=== PATIENT | male | born 1990 | race American Indian/Alaskan Native ===

== ENCOUNTER 2016-06-16 15:34 | Emergency (ER) | payer SELFPAY ==
[2016-06-16] MEDS ORDERED: TYLENOL PO ONE (16:55)
[2016-06-16] MEDS ORDERED: TYLENOL ONE (16:56)
--- NOTE | 2016-06-16 17:04 | Emergency Department Report ---
Chief Complaint: Sore Throat Stated Complaint: FEVER/THROAT/CANT KEEP FOOD DOWN Time Seen by Provider: 06/16/16 16:56 - HPI History of Present Illness: Patient here complaining of sore throat and fever since Monday. He is also complaining nasal congestion and coughing up mucus. Denies any shortness of breath or chest pain. He complaining of vomiting and diarrhea since yesterday. He reports that he feels hot and cold. Sore throat is 10 out of 10 and generalized is 8 out of 10. Denies any chest pain. Patient said he took TheraFlu without any relief. Denies any abdominal pain. - ROS Review of Systems: All systems are negative unless stated in HPI above. - Exam Vital Signs: Vital Signs 06/16/16 16:11 Temperature 100.2 F H Pulse Rate 118 H Respiratory 20 Rate Blood Pressure 120/67 O2 Sat by Pulse 98 Oximetry Physical Exam: General: This Is a morbidly obese male that is in no acute distress. Lungs: Dry cough, normal work of breathing. Clear to auscultate bilaterally. CV: Tachycardic at 118 suspect from fever. S1, S2 MSE screening note: Focused history and physical exam performed. Due to findings the following was ordered: See MDM ED Medical Decision Making - Medical Decision Making Medical decision making: Patient seen by provider in triage area. Appropriate protocol activated and patient to main ED to be seen by physician. ED Disposition for MSE Condition: Stable
[2016-06-16 17:51] LABS: Hematocrit 36.9 % (35.5-45.6); Hemoglobin 11.9 gm/dl (11.8-15.2); Mean Corpuscular HGB Conc 32 % (32-34); Mean Corpuscular Volume 77 fl (84-94); Platelet Count 403 K/mm3 (140-440); Red Blood Count 4.79 M/mm3 (3.65-5.03); Red Cell Distribution Width 15.6 % (13.2-15.2)
[2016-06-16 18:12] LABS: Mean Corpuscular Hemoglobin 25 pg (28-32)
[2016-06-16 18:15] LABS: Anion Gap 23 mmol/L; Blood Urea Nitrogen 12 mg/dL (9-20); Calcium 8.9 mg/dL (8.4-10.2); Carbon Dioxide 20 mmol/L (22-30); Chloride 96.8 mmol/L (98-107); Glucose 107 mg/dL (75-100); Potassium 3.7 mmol/L (3.6-5.0); Sodium 136 mmol/L (137-145)
[2016-06-16 19:22] LABS: Basophils % (Manual) 0 % (0.0-1.8); Blastocytes % (Manual) 0 %; Eosinophils % (Manual) 0 % (0.0-4.3)
[2016-06-16 19:30] LABS: Anisocytosis 1+; Diff Status Complete; Large Platelets 1+; Platelet Estimate Consistent w Auto
[2016-06-16 20:52] VITALS: BP 130/82
--- NOTE | 2016-06-17 13:00 | ED Elopement Review ---
ED Pt Elopement review - Results review Lab results: Laboratory Tests 06/16/16 06/16/16 17:41 17:41 WBC 40.0 H RBC 4.79 Hgb 11.9 Hct 36.9 MCV 77 L MCH 25 L MCHC 32 RDW 15.6 H Plt Count 403 Add Manual Diff Complete Total Counted 200 Seg Neutrophils % Dish Stacker Seg Neuts % (Manual) 53.0 Band Neutrophils % 39.0 Lymphocytes % (Manual) 4.0 L Reactive Lymphs % (Man) 0 Monocytes % (Manual) 4.0 Eosinophils % (Manual) 0 Basophils % (Manual) 0 Metamyelocytes % 0 Myelocytes % 0 Promyelocytes % 0 Blast Cells % 0 Nucleated RBC % Not Reportable Seg Neutrophils # Man 21.2 H Band Neutrophils # 15.6 Lymphocytes # (Manual) 1.6 Abs React Lymphs (Man) 0.0 Monocytes # (Manual) 1.6 H Eosinophils # (Manual) 0.0 Basophils # (Manual) 0.0 Metamyelocytes # 0.0 Myelocytes # 0.0 Promyelocytes # 0.0 Blast Cells # 0.0 WBC Morphology Not Reportable Hypersegmented Neuts Not Reportable Hyposegmented Neuts Not Reportable Hypogranular Neuts Not Reportable Smudge Cells Not Reportable Toxic Granulation Not Reportable Toxic Vacuolation Not Reportable Dohle Bodies Not Reportable Pelger-Huet Anomaly Not Reportable Mellissa Rods Not Reportable Platelet Estimate Consistent w auto Clumped Platelets Not Reportable Plt Clumps, EDTA Not Reportable Large Platelets 1+ Giant Platelets Not Reportable Platelet Satelliting Not Reportable Plt Morphology Comment Not Reportable RBC Morphology Not Reportable Dimorphic RBCs Not Reportable Polychromasia Not Reportable Hypochromasia Not Reportable Poikilocytosis Not Reportable Anisocytosis 1+ Microcytosis Not Reportable Macrocytosis Not Reportable Spherocytes Not Reportable Pappenheimer Bodies Not Reportable Sickle Cells Not Reportable Target Cells Not Reportable Tear Drop Cells Not Reportable Ovalocytes Not Reportable Helmet Cells Not Reportable Parnell-Guyton Bodies Not Reportable Ragland Rings Not Reportable Palomo Cells Not Reportable Bite Cells Not Reportable Crenated Cell Not Reportable Elliptocytes Not Reportable Acanthocytes (Spur) Not Reportable Rouleaux Not Reportable Hemoglobin C Crystals Not Reportable Schistocytes Not Reportable Malaria parasites Not Reportable Rocco Bodies Not Reportable Hem Pathologist Commnt Sent to pathology Sodium 136 L Potassium 3.7 Chloride 96.8 L Carbon Dioxide 20 L Anion Gap 23 BUN 12 Creatinine 0.6 L Estimated GFR > 60 BUN/Creatinine Ratio 20.00 Glucose 107 H Calcium 8.9 - Call Back decision Pt Call Back Decision: Call pt to return to ED [facility] (patient's WBC was 40,000)
--- NOTE | 2016-06-17 15:13 | XRay Report ---
ROUTINE CHEST, TWO VIEWS: HISTORY: Cough, fever. The trachea, heart, mediastinal contour, lung montoya and bony thorax are unremarkable. IMPRESSION: Unremarkable chest x-ray.
== END 2016-06-16 22:09 | disposition left against medical advice (07) ==
LOC: ED 15:34
DX: J02.9 Acute pharyngitis, unspecified (principal); R09.81 Nasal congestion; Z53.21 Procedure and treatment not carried out due to patient leaving prior to being seen by health care provider
CPT/HCPCS: 36415; 71020; 80048; 85007; 85025; 87116; 87400; 87430

== ENCOUNTER 2016-08-08 08:22 | Emergency (ER) | payer SELFPAY ==
--- NOTE | 2016-08-08 10:19 | Emergency Department Report ---
HPI - HPI HPI: 25-year-old male presents today stating he received a letter from [facility] stating his white blood cell count was elevated. Patient was here on June 14 for sore throat and fever and had blood work done. Denies any medical complaints at this time. Denies fever, chills, nausea , vomiting, chest pain, shortness of breath, abdominal pain. <ROLANDO ALLEN - Last Filed: 08/08/16 10:32> <RAMÓN MCNEIL - Last Filed: 08/08/16 15:38> - General Chief Complaint: Recheck/Abnormal Lab/Rx Time Seen by Provider: 08/08/16 10:06 ED Past Medical Hx - Past Medical History Previous Medical History?: No Additional medical history: "weak ankles", morbidly obese - Surgical History Past Surgical History?: No - Social History Smoking Status: Current Every Day Smoker Substance Use Type: Alcohol <ROLANDO ALLEN - Last Filed: 08/08/16 10:32> <RAMÓN MCNEIL - Last Filed: 08/08/16 15:38> - Medications Home Medications: Home Medications Medication Instructions Recorded Confirmed Last Taken Type No Known Home Medications [No 06/16/16 06/16/16 Unknown History Reported Home Medications] ED Review of Systems ROS: Stated complaint: ABNORMAL LABS Other details as noted in HPI Constitutional: denies: chills, fever, malaise Eyes: denies: eye pain ENT: denies: ear pain, throat pain, congestion Respiratory: denies: cough, shortness of breath, wheezing Cardiovascular: denies: chest pain, palpitations Endocrine: no symptoms reported Gastrointestinal: denies: abdominal pain, nausea, vomiting Skin: denies: rash Neurological: denies: headache, weakness <ROLANDO ALLEN - Last Filed: 08/08/16 10:32> ROS: Stated complaint: ABNORMAL LABS Other details as noted in HPI <RAMÓN MCNEIL - Last Filed: 08/08/16 15:38> Physical Exam - Physical Exam Vital Signs: Vital Signs 08/08/16 08:27 Temperature 98.2 F Pulse Rate 100 H Respiratory 16 Rate Blood Pressure 147/89 O2 Sat by Pulse 100 Oximetry Physical Exam: GENERAL: The patient is well-developed and well-nourished. Patient is in NAD. HEAD: Normocephalic. Atraumatic. EYES: PERRL. EARS: External auditory canals and tympanic membranes clear; hearing grossly intact. NOSE: Normal nasal mucosa with no nasal discharge. THROAT: No erythema, swelling or exudates. NECK: Supple, nontender, without lymphadenopathy. CHEST/LUNGS: Clear to auscultation throughout. HEART/CARDIOVASCULAR: Regular rate and rhythm. No murmurs, rubs or gallops. ABDOMEN: Abdomen is soft, nontender. Bowel sounds normoactive. No guarding or rebound tenderness. EXTREMITIES: Peripheral pulses intact. Capillary refill less than 2 seconds. NEURO: Alert and oriented x 3. Normal gait. <ROLANDO ALLEN - Last Filed: 08/08/16 10:32> - Physical Exam Vital Signs: Vital Signs 08/08/16 08/08/16 08:27 10:28 Temperature 98.2 F Pulse Rate 100 H 92 H Respiratory 16 20 Rate Blood Pressure 147/89 Blood Pressure 146/86 [Left] O2 Sat by Pulse 100 100 Oximetry <RAMÓN MCNEIL - Last Filed: 08/08/16 15:38> ED Course Vital Signs 08/08/16 08:27 Temperature 98.2 F Pulse Rate 100 H Respiratory 16 Rate Blood Pressure 147/89 O2 Sat by Pulse 100 Oximetry <ROLANDO ALLEN - Last Filed: 08/08/16 10:32> Vital Signs 08/08/16 08/08/16 08:27 10:28 Temperature 98.2 F Pulse Rate 100 H 92 H Respiratory 16 20 Rate Blood Pressure 147/89 Blood Pressure 146/86 [Left] O2 Sat by Pulse 100 100 Oximetry <RAMÓN MCNEIL - Last Filed: 08/08/16 15:38> ED Medical Decision Making - Lab Data Vital Signs 08/08/16 08/08/16 08:27 10:28 Temperature 98.2 F Pulse Rate 100 H 92 H Respiratory 16 20 Rate Blood Pressure 147/89 Blood Pressure 146/86 [Left] O2 Sat by Pulse 100 100 Oximetry - Medical Decision Making 24-year-old male presents today for abnormal lab follow-up. Discussed his lab results, chest xray and rapid strep/flu results from 06/14/2016. Provided patient with a copy of the results and recommended him to follow up with his primary care provider. Patient is in no acute distress at this time. He will be discharged home and is encouraged to follow up with a primary care provider. He is encouraged to return to the emergency room for any worsening symptoms. <ROLANDO ALLEN - Last Filed: 08/08/16 10:32> - Medical Decision Making I discussed case with the nurse practitioner who evaluated the patient. I would 've preferred the patient had a repeat CBC since he was originally informed of a significantly elevated wbc count. Blood based cancers are in the differential such as leukemia. Patient is asymptomatic as per nurse practitioner. She stated she gave him a copy of his lab wrote admitting advised that he follow up with primary care doctor patient states that he will. I am okay with this plan since patient lacks any symptoms currently. Nurse practitioner states patient states pt does plan to follow-up <RAMÓN MCNEIL - Last Filed: 08/08/16 15:38> Critical care attestation.: If time is entered above; I have spent that time in minutes in the direct care of this critically ill patient, excluding procedure time. <ROLANDO ALLEN - Last Filed: 08/08/16 10:32> Critical care attestation.: If time is entered above; I have spent that time in minutes in the direct care of this critically ill patient, excluding procedure time. <RAMÓN MCNEIL - Last Filed: 08/08/16 15:38> ED Disposition Is pt being admited?: No Does the pt Need Aspirin: No Time of Disposition: 10:20 <ROLANDO ALLEN - Last Filed: 08/08/16 10:32> <RAMÓN MCNEIL - Last Filed: 08/08/16 15:38> Disposition: DISCHARGED TO HOME OR SELFCARE Condition: Stable Additional Instructions: Follow-up with primary care provider. Return to the emergency department for new or worsening symptoms. Referrals: PRIMARY CARE, [Primary Care Provider] - 3-5 Days [facility] [Outside] - 3-5 Days Forms: Work/School Release Form(ED)
[2016-08-08 10:29] VITALS: BP 146/86
== END 2016-08-08 10:30 | disposition home or self-care (01) ==
LOC: ED 08:22
DX: R79.9 Abnormal finding of blood chemistry, unspecified (principal); E66.01 Morbid (severe) obesity due to excess calories; F17.200 Nicotine dependence, unspecified, uncomplicated
CPT/HCPCS: 99282

== ENCOUNTER 2016-09-08 08:26 | Emergency (ER) | payer SELFPAY ==
[2016-09-08 09:01] VITALS: BP 157/99
[2016-09-08] MEDS ORDERED: NAPROSYN PO ONE (10:00)
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
== END 2016-09-08 10:38 | disposition home or self-care (01) ==
LOC: ED 08:26
DX: M54.2 Cervicalgia (principal); R51 Headache; F17.200 Nicotine dependence, unspecified, uncomplicated; Z88.1 Allergy status to other antibiotic agents; V89.2XXA Person injured in unspecified motor-vehicle accident, traffic, initial encounter; Y93.89 Activity, other specified; Y99.8 Other external cause status; Y92.89 Other specified places as the place of occurrence of the external cause
CPT/HCPCS: 99282

== ENCOUNTER 2017-07-08 11:17 | Emergency (ER) | payer SELFPAY ==
--- NOTE | 2017-07-08 15:39 | Emergency Department Report ---
ED General Adult HPI - General Chief complaint: Upper Respiratory Infection Stated complaint: FLU LIKE SYMPTOMS Time Seen by Provider: 07/08/17 15:35 Source: patient Mode of arrival: Ambulatory Limitations: No Limitations - History of Present Illness Initial comments: Patient is a 26-year-old male presents no significant past history presents with coughing nausea and vomiting and fever that has been going on for the last 3 days. Patient states that he has a headache is located in the front portion of his had it as a 6 out of 10 nothing makes it better or worse it's gradual in onset patient denies having any neck pain or any vision changes. Pain is an achy type of pain and he goes throughout his body. Patient states he works at [employer] and [employer]. Patient's vomit has been nonbloody non bilious. - Related Data Previous Rx's Medication Instructions Recorded Last Taken Type Naproxen [Naprosyn TAB] 500 mg PO BID #30 tablet 09/08/16 Unknown Rx methOCARBAMOL [Robaxin TAB] 500 mg PO BID #30 tab 09/08/16 Unknown Rx Dextromethorphan Polistirex 30 mg PO Q6H #60 ml 07/08/17 Unknown Rx [Delsym] Guaifen/Phenyleph/Acetaminophn 1 each PO Q6H #30 tablet 07/08/17 Unknown Rx [Tylenol Cold Head Congest Cplt] Naproxen [Naprosyn] 500 mg PO BID #30 tablet 07/08/17 Unknown Rx Ondansetron [Zofran Odt] 4 mg PO Q6H PRN #10 tab.rapdis 07/08/17 Unknown Rx Allergies Allergy/AdvReac Type Severity Reaction Status Date / Time cephalexin Allergy Unknown Verified 06/16/16 16:15 ED Review of Systems ROS: Stated complaint: FLU LIKE SYMPTOMS Other details as noted in HPI Constitutional: denies: chills, fever Eyes: denies: eye pain, eye discharge, vision change ENT: denies: ear pain, throat pain Respiratory: cough. denies: shortness of breath, wheezing Cardiovascular: denies: chest pain, palpitations Endocrine: no symptoms reported Gastrointestinal: nausea, vomiting. denies: abdominal pain, diarrhea Genitourinary: denies: urgency, dysuria Musculoskeletal: denies: back pain, joint swelling, arthralgia Skin: denies: rash, lesions Neurological: denies: headache, weakness, paresthesias Psychiatric: denies: anxiety, depression Hematological/Lymphatic: denies: easy bleeding, easy bruising ED Past Medical Hx - Past Medical History Previous Medical History?: Yes Additional medical history: "weak ankles", morbidly obese - Surgical History Past Surgical History?: Yes Additional Surgical History: right knee surgery - Social History Smoking Status: Current Every Day Smoker Substance Use Type: Alcohol - Medications Home Medications: Home Medications Medication Instructions Recorded Confirmed Last Taken Type Naproxen [Naprosyn TAB] 500 mg PO BID #30 tablet 09/08/16 Unknown Rx methOCARBAMOL [Robaxin TAB] 500 mg PO BID #30 tab 09/08/16 Unknown Rx Dextromethorphan Polistirex 30 mg PO Q6H #60 ml 07/08/17 Unknown Rx [Delsym] Guaifen/Phenyleph/Acetaminophn 1 each PO Q6H #30 tablet 07/08/17 Unknown Rx [Tylenol Cold Head Congest Cplt] Naproxen [Naprosyn] 500 mg PO BID #30 tablet 07/08/17 Unknown Rx Ondansetron [Zofran Odt] 4 mg PO Q6H PRN #10 tab.rapdis 07/08/17 Unknown Rx ED Physical Exam - General Limitations: No Limitations General appearance: alert, in no apparent distress - Head Head exam: Present: atraumatic, normocephalic - Eye Eye exam: Present: normal appearance - ENT ENT exam: Present: mucous membranes moist - Neck Neck exam: Present: normal inspection - Respiratory Respiratory exam: Present: normal lung sounds bilaterally. Absent: respiratory distress - Cardiovascular Cardiovascular Exam: Present: regular rate, normal rhythm. Absent: systolic murmur, diastolic murmur, rubs, gallop - GI/Abdominal GI/Abdominal exam: Present: soft, normal bowel sounds - Rectal Rectal exam: Present: deferred - Extremities Exam Extremities exam: Present: normal inspection - Back Exam Back exam: Present: normal inspection - Neurological Exam Neurological exam: Present: alert, oriented X3 - Psychiatric Psychiatric exam: Present: normal affect, normal mood - Skin Skin exam: Present: warm, dry, intact, normal color. Absent: rash ED Course Vital Signs 07/08/17 11:24 Temperature 99.4 F Pulse Rate 109 H Respiratory 20 Rate Blood Pressure 134/71 O2 Sat by Pulse 96 Oximetry ED Medical Decision Making - Medical Decision Making Cdx: Influenza ddx: [place] virus, gastritis, sinusitis headache I will send pt home with work note, tylenol, motrin and zofran. Discussed plan with patient patient agrees with plan and additional verbal discharge instructions were given. Critical care attestation.: If time is entered above; I have spent that time in minutes in the direct care of this critically ill patient, excluding procedure time. ED Disposition Clinical Impression: Influenza, Cough Nausea and vomiting Qualifiers: Vomiting type: unspecified Vomiting Intractability: non-intractable Qualified Code(s): R11.2 - Nausea with vomiting, unspecified Disposition: - TO HOME OR SELFCARE Is pt being admited?: No Does the pt Need Aspirin: No Condition: Stable Instructions: Influenza (ED), Acute Nausea and Vomiting (ED) Prescriptions: Dextromethorphan Polistirex [Delsym] 30 mg PO Q6H #60 ml Guaifen/Phenyleph/Acetaminophn [Tylenol Cold Head Congest Cplt] 1 each PO Q6H # 30 tablet Naproxen [Naprosyn] 500 mg PO BID #30 tablet Ondansetron [Zofran Odt] 4 mg PO Q6H PRN #10 tab.rapdis PRN Reason: Nausea Referrals: PRIMARY CARE, [Primary Care Provider] - 3-5 Days Forms: Work/School Release Form(ED)
[2017-07-08 15:53] VITALS: BP 126/70
== END 2017-07-08 15:57 | disposition home or self-care (01) ==
LOC: ED 11:17
DX: J11.1 Influenza due to unidentified influenza virus with other respiratory manifestations (principal); F17.200 Nicotine dependence, unspecified, uncomplicated; Z88.1 Allergy status to other antibiotic agents
CPT/HCPCS: 99282